=== PATIENT | male | born 1965 | race Caucasian/White ===

== ENCOUNTER 2017-03-13 16:09 | Emergency (ER) | payer MEDICARE, OTHER ==
[2017-03-13] MEDS ORDERED: DEXAMETHASONE 10 MG/ML VIAL PO STA (17:46)
[2017-03-13] MEDS ORDERED: CHERRY SYRUP 10 ML UDC PO ONE (17:47)
[2017-03-13] MEDS ORDERED: DEXAMETHASONE 10 MG/ML VIAL ONE (17:47)
--- NOTE | 2017-03-13 17:50 | ED Physician Documentation ---
PD HPI LOWER EXT INJURY - Stated complaint Stated Complaint: RT LEG PX - Chief complaint Chief Complaint: Ext Problem - History obtained from History obtained from: Patient - History of Present Illness PD HPI LOW EXT INJURY LOCATION: Right, Hip, Upper leg Type of injury: Other (mowing) Where injury occurred: A house / apartment Timing - onset: How many days ago (3) Timing - duration: Days (3) Timing - details: Gradual onset, Still present Improved by: Rest, Immobilization Worsened by: Moving, Palpating Associated symptoms: Tingling. No: Weakness, Numbness Contributing factors: Anticoagulated Similar symptoms before: No diagnosis Recently seen: Not recently seen - Additional information Additional information: 51 y/o male on coumadin for remote PE has developed pain in the right groin radiating down the right leg. He has no pain at rest but moving the leg in the right position (really the wrong position) causes pain in the anterior thigh from the groin and this pain radiates all the way down the leg past the knee to the medial calf. He has had this previously and it has lasted a few days and goes away and it has not been this painful previously. He did do the mowing at his parents earlier in the day before this pain started. He is comfortable while sitting. Review of Systems Constitutional: denies: Fever Eyes: denies: Decreased vision Ears: denies: Ear pain Nose: denies: Congestion Throat: denies: Sore throat Cardiac: denies: Chest pain / pressure Respiratory: denies: Cough GI: denies: Abdominal Pain, Nausea, Vomiting : denies: Dysuria, Frequency Skin: denies: Rash Musculoskeletal: reports: Extremity pain, Other (pain with certain movements of the right leg.). denies: Neck pain, Back pain, Extremity swelling, Joint swelling, Pain with weight bearing Neurologic: denies: Generalized weakness, Focal weakness, Numbness PD PAST MEDICAL HISTORY - Past Medical History Cardiovascular: Pulmonary embolism Respiratory: Emphysema Neuro: Headache/migraine Psych: Bipolar disorder Musculoskeletal: Chronic back pain - Past Surgical History Past Surgical History: No - Present Medications Home Medications: Ambulatory Orders Medication Instructions Recorded Confirmed QUEtiapine [SEROquel] 25 mg PO DAILY 04/23/14 03/13/17 Baclofen 10 mg PO BID PRN 06/20/14 03/13/17 Simvastatin 10 mg PO QPM 06/20/14 03/13/17 Warfarin [Coumadin] 6 mg PO DAILY 06/20/14 03/13/17 Sumatriptan [Imitrex] 100 mg PO BID PRN 01/15/15 03/13/17 Loratadine [Claritin] 1 tab PO DAILY 07/03/15 03/13/17 HYDROcod/ACETAM 5/325 [[place] 5/325] 1 - 2 ea PO Q6H PRN #15 tablet 03/13/17 Pregabalin [Lyrica] 0 mg PO ONCE 03/13/17 03/13/17 - Allergies Allergies/Adverse Reactions: Allergies Allergy/AdvReac Type Severity Reaction Status Date / Time No Known Drug Allergies Allergy Verified 03/13/17 16:20 - Social History Does the pt smoke?: Yes Smoking Status: Current every day smoker Does the pt drink ETOH?: No Does the pt have substance abuse?: No - Immunizations Immunizations are current?: Yes PD ED PE NORMAL - Vitals Vital signs reviewed: Yes (normal ) - General General: Alert and oriented X 3, No acute distress, Well developed/nourished - HEENT HEENT: Atraumatic, PERRL - Respiratory Respiratory: No respiratory distress - Derm Derm: Normal color, Warm and dry, No rash - Extremities Extremities: No deformity, No edema, No calf tenderness / cord, Other (There is some mild tenderness to the groin over the hip adductors. ) - Neuro Neuro: No motor deficit, No sensory deficit - Psych Psych: Normal mood, Normal affect Results - Vitals Vitals: Vital Signs - 24 hr 03/13/17 16:16 Temperature 36 C L Heart Rate 98 Respiratory 18 Rate Blood Pressure 103/69 O2 Saturation 97 Oxygen O2 Source Room air PD MEDICAL DECISION MAKING - ED course Complexity details: considered differential, d/w patient ED course: 51 y/o male with strain of the hip adductors presumed due to mowing and on coumadin. He has had this happen a number of times and today this is more painful than usual. He is treated with decadron and we will provide a small amount of pain medication for comfort. Departure - Departure Disposition: 01 Home, Self Care Clinical Impression: Strain of muscle of right groin region Condition: Stable Instructions: ED Strain Groin Follow-Up: Your, doctor [Other] Prescriptions: HYDROcod/ACETAM 5/325 [[place] 5/325] 1 - 2 ea PO Q6H PRN #15 tablet PRN Reason: Pain
[2017-03-13 18:20] VITALS: BP 115/66
== END 2017-03-13 18:15 | disposition home or self-care (01) ==
LOC: ED 16:09
DX: I26.99 Other pulmonary embolism without acute cor pulmonale (principal); Z79.01 Long term (current) use of anticoagulants; F17.200 Nicotine dependence, unspecified, uncomplicated; S76.911A Strain of unspecified muscles, fascia and tendons at thigh level, right thigh, initial encounter; X50.9XXA Other and unspecified overexertion or strenuous movements or postures, initial encounter; Y93.H9 Activity, other involving exterior property and land maintenance, building and construction; Y92.038 Other place in apartment as the place of occurrence of the external cause; Y92.007 Garden or yard of unspecified non-institutional (private) residence as the place of occurrence of the external cause
CPT/HCPCS: 99283; A9270

== ENCOUNTER 2018-01-28 02:44 | Outpatient (CLI) | payer OTHER | END 2018-01-28 02:45 | disposition critical access hospital (66) | LOC: EMS 02:44 | PROVIDERS: ATTEND Surgery | DX: R55 Syncope and collapse (principal); S09.90XA Unspecified injury of head, initial encounter; S91.111A Laceration without foreign body of right great toe without damage to nail, initial encounter; W18.39XA Other fall on same level, initial encounter; Y93.89 Activity, other specified; Y92.002 Bathroom of unspecified non-institutional (private) residence as the place of occurrence of the external cause | CPT/HCPCS: A0425; A0427 ==

== ENCOUNTER 2018-01-28 03:09 | Emergency (ER) | payer OTHER ==
--- NOTE | 2018-01-28 03:36 | ED Physician Documentation ---
PD HPI SYNCOPE - Stated complaint Stated Complaint: SYNCOPE - Chief complaint Chief Complaint: Trauma Hd/Nk - History obtained from History obtained from: Patient - History of Present Illness Witnessed: Unwitnessed Timing - onset: How many minutes ago (approximately 30-45 minutes [employer]) Duration: Seconds Preceding symptoms: Light headed, Generalized weakness Contributing factors: Just stood up Injury occurred: Fell, Other (right foot injury) Pain level now: 6 (right foot) Similar symptoms before: No diagnosis (patient says he has had similar episodes in the past and that previous testing did not reveal diagnosis/etiology) Recently seen: Not recently seen - Additional information Additional information: patient was at home tonight, had just finished having a bowel movement, and upon standing up from the toilet, had near syncopal episode. He says he did not lose consciousness; remembers entire event. He sustained a right foot injury although he does not know how he injured the foot. He found that he was unable to bear weight on the right foot and thus had to crawl to the phone to call 911. medics found patient to have a normal blood pressure on arrival to scene. he had a subsequent systolic blood pressure of 80, but this normalized on the next reading, and he arrives to the emergency department with a normal blood pressure. patient is on warfarin, did hit head tonight, although he denies headache. Review of Systems Constitutional: reports: Reviewed and negative Eyes: denies: Loss of vision, Decreased vision Cardiac: reports: Reviewed and negative Respiratory: reports: Reviewed and negative GI: reports: Reviewed and negative : denies: Dysuria, Frequency Skin: reports: Laceration (s) Musculoskeletal: reports: Extremity pain, Extremity swelling, Pain with weight bearing. denies: Neck pain, Back pain Neurologic: reports: Near syncope, Head injury. denies: Generalized weakness, Focal weakness, Numbness, Confused, Headache, LOC PD PAST MEDICAL HISTORY - Past Medical History Cardiovascular: Pulmonary embolism Respiratory: Emphysema Neuro: Headache/migraine Psych: Bipolar disorder Musculoskeletal: Chronic back pain - Past Surgical History Past Surgical History: No - Present Medications Home Medications: Ambulatory Orders Medication Instructions Recorded Confirmed QUEtiapine [SEROquel] 25 mg PO DAILY 04/23/14 01/28/18 Simvastatin 10 mg PO QPM 06/20/14 01/28/18 Warfarin [Coumadin] 5 mg PO DAILY 06/20/14 01/28/18 SUMAtriptan [Imitrex] 100 mg PO BID PRN 01/15/15 01/28/18 Amitriptyline HCl [Amitriptyline 1 tab PO DAILY 01/28/18 01/28/18 HCl] HYDROcod/ACETAM 5/325 [[place] 5/325] 1 - 2 ea PO Q6H PRN #14 tablet 01/28/18 Lurasidone HCl [Latuda] 20 mg PO DAILY 01/28/18 01/28/18 - Allergies Allergies/Adverse Reactions: Allergies Allergy/AdvReac Type Severity Reaction Status Date / Time No Known Drug Allergies Allergy Verified 01/28/18 03:17 - Social History Does the pt smoke?: Yes Smoking Status: Current every day smoker Does the pt drink ETOH?: No Does the pt have substance abuse?: No - Immunizations Immunizations are current?: No Immunizations: TDAP >10years/unknown PD ED PE NORMAL - Vitals Vital signs reviewed: Yes - General General: Alert and oriented X 3, No acute distress, Well developed/nourished - HEENT HEENT: PERRL, EOMI, Moist mucous membranes - Neck Neck: No bony TTP - Cardiac Cardiac: RRR, No murmur - Respiratory Respiratory: No respiratory distress, Clear bilaterally - Abdomen Abdomen: Soft, Non tender - Extremities Extremities: No edema - Neuro Neuro: Alert and oriented X 3, maintainer operator 2-12 intact, No motor deficit, No sensory deficit, Normal speech Eye Opening: Spontaneous Motor: Obeys Commands Verbal: Oriented GCS Score: 15 PD ED PE EXPANDED - HEENT HEENT: Other (small, raised abrasion right of midline forehead with mild tenderness) - Extremities Extremities: Other (tenderness, seelling, echymosis right midfoot and forefoot, dorsal surface) Feet visual: 1 - laceration (2 cm) Results - Vitals Vitals: Oxygen O2 Source Room air - EKG (time done) No standard instances Rate: Rate (enter#) (68) Rhythm: NSR [place]: Normal Intervals: Normal NH QRS: Normal Ischemia: Normal ST segments - Labs Labs: Laboratory Tests 01/28/18 01/28/18 01/28/18 03:25 03:25 03:25 WBC 10.9 H RBC 4.83 Hgb 14.1 Hct 44.3 MCV 91.8 MCH 29.3 MCHC 31.9 L RDW 14.5 Plt Count 207 MPV 8.9 Neut # 7.7 H Lymph # 2.0 [place] # 0.8 Eos # 0.3 Baso # 0.1 Absolute Nucleated RBC 0.02 Nucleated RBC % 0.1 PT 30.2 H INR 2.8 H APTT 26.8 Sodium 139 Potassium 3.5 Chloride 103 Carbon Dioxide 28 Anion Gap 8.0 BUN 9 Creatinine 1.0 Estimated GFR (MDRD) 78 L Glucose 167 H Calcium 8.6 Troponin I 01/28/18 03:25 WBC RBC Hgb Hct MCV MCH MCHC RDW Plt Count MPV Neut # Lymph # [place] # Eos # Baso # Absolute Nucleated RBC Nucleated RBC % PT INR APTT Sodium Potassium Chloride Carbon Dioxide Anion Gap BUN Creatinine Estimated GFR (MDRD) Glucose Calcium Troponin I < 0.04 - Rads (name of study) CT head Radiology: Prelim report reviewed, See rad report right foot xrays Radiology: Prelim report reviewed, See rad report Procedures - Laceration (location) Toe right Plantar Length in cm: 2 Wound type: Linear Neurovascular status: Sensory intact, Motor intact, Vascular intact Tendon involvement: Tendon intact Anesthesia: Lidocaine 1% Wound Preparation: Chlorhexadine, Irrigated copiously NS, To the base. No: FB identified Skin layer closure: Running (2 running sutures placed), Size #-0 - enter number (4-0) Other: Patient tolerated well, No complications, Neurovascular intact, Dressing applied, Tetanus booster given Complexity: Simple PD MEDICAL DECISION MAKING - ED course Complexity details: reviewed results, re-evaluated patient, considered differential, d/w patient Departure - Departure Disposition: 01 Home, Self Care Clinical Impression: Near syncope Laceration of toe of right foot Qualifiers: Encounter type: initial encounter Toe: great toe Damage to nail status: without damage Foreign body presence: without foreign body Qualified Code(s): S91.111A - Laceration without foreign body of right great toe without damage to nail, initial encounter Contusion, foot Qualifiers: Encounter type: initial encounter Laterality: right Qualified Code(s): S90.31XA - Contusion of right foot, initial encounter Condition: Good Instructions: ED Contusion Foot, ED Crutch Walking, ED Laceration Foot, ED Near Syncope Unkn Follow-Up: Neelam Hyde MD [Provider Admit Priv/Credential] - Prescriptions: HYDROcod/ACETAM 5/325 [[place] 5/325] 1 - 2 ea PO Q6H PRN #14 tablet PRN Reason: Pain Comments: Follow up with your doctor in 7-8 days for removal of the stitches in your foot Discharge Date/Time: 01/28/18 05:34
[2018-01-28 03:51] LABS: INR 2.8 (0.8-1.2); PT - PROTHROMBIN TIME 30.2 secs (9.9-12.6)
[2018-01-28 03:52] LABS: BASOPHILS # (AUTO) 0.1 10^3/uL (0.0-0.1); BASOPHILS % (AUTO) 0.5 %; EOSINOPHILS # (AUTO) 0.3 10^3/uL (0.0-0.7); EOSINOPHILS % (AUTO) 2.7 %; HGB - HEMOGLOBIN 14.1 g/dL (14.0-18.0); LYMPHOCYTES % (AUTO) 18.8 %; MEAN CORPUSCULAR HEMOGLOBIN 29.3 pg (27.0-31.0); MEAN CORPUSCULAR HGB CONC 31.9 g/dL (32.0-36.0); MEAN CORPUSCULAR VOLUME 91.8 fL (80.0-94.0); MEAN PLATELET VOLUME 8.9 fL (7.4-11.4); MONOCYTES # (AUTO) 0.8 10^3/uL (0.0-1.0); MONOCYTES % (AUTO) 7.6 %; NEUTROPHILS # (AUTO) 7.7 10^3/uL (1.5-6.6); NEUTROPHILS % (AUTO) 70.4 %; PLT - PLATELET COUNT 207 10^3/uL (130-450); RED BLOOD COUNT 4.83 10^6/uL (4.70-6.10); RED CELL DISTRIBUTION WIDTH 14.5 % (12.0-15.0); WHITE BLOOD COUNT 10.9 x10^3/uL (4.8-10.8)
[2018-01-28 03:53] LABS: CALCIUM 8.6 mg/dL (8.5-10.3)
[2018-01-28] MEDS: TETANUS/DIPHTHERIA/PERTUSSIS 0.5 ML SYRINGE IM ONE (04:03)
--- NOTE | 2018-01-28 04:23 | CT Report ---
EXAM: CT HEAD EXAM DATE: 01/28/2018 04:11 AM. CLINICAL HISTORY: Syncope, head injury. COMPARISON: CT head 01/15/2015.. TECHNIQUE: Multiaxial CT images were obtained from the foramen magnum to the vertex. Reformats: Coron al. IV contrast: None. In accordance with CT protocol optimization, one or more of the following dose reduction techniques w ere utilized for this exam: automated exposure control, adjustment of mA and/or KV based on patient s ize, or use of iterative reconstructive technique. FINDINGS: Parenchyma: No intraparenchymal hemorrhage. No evidence of mass, midline shift, or CT findings of inf arction. Car-white differentiation is distinct. Extraaxial Spaces: Normal for age. No subdural or epidural collections identified. Ventricles: Normal in size and position. Sinuses and Orbits: Imaged paranasal sinuses, orbits, and mastoids show no significant abnormality. Bones: No evidence of fracture or calvarial defect. Other: None. IMPRESSION: Negative CT head without contrast. No change compared to 01/15/2015. [facility] Referring Provider Line: [phone] SITE ID: [id number]
--- NOTE | 2018-01-28 04:23 | CT Preliminary Report ---
Exam: CT HEAD W/O IMPRESSION: Negative CT head without contrast. No change compared to 01/15/2015. [facility] SITE ID: [id number]
--- NOTE | 2018-01-28 04:38 | XRAY Preliminary Report ---
Exam: XR FOOT 3 VIEW RT IMPRESSION: Dorsal soft tissue joint without evidence of an acute displaced fracture. SITE ID: [id number]
--- NOTE | 2018-01-28 04:39 | XRAY Report ---
EXAM: RIGHT FOOT RADIOGRAPHY EXAM DATE: 01/28/2018 04:12 AM. CLINICAL HISTORY: Injury, swelling, tenderness. COMPARISON: None. TECHNIQUE: 3 views. FINDINGS: Bones: No acute displaced fractures or suspicious bony lesion. Joints: No dislocation. Soft Tissues: There is moderate dorsal soft tissue swelling. IMPRESSION: Dorsal soft tissue joint without evidence of an acute displaced fracture. Referring Provider Line: [phone] SITE ID: [id number]
[2018-01-28] MEDS: LIDOCAINE 1% 2 ML VIAL SUBQ STA (04:41)
[2018-01-28] MEDS ORDERED: BACITRACIN OINT TOP ONE (05:24)
[2018-01-28] MEDS: BACITRACIN OINT TOP STA (05:26)
[2018-01-28] MEDS: HYDROcod/ACETAM 5/325 MG TABLET PO STA (05:26)
[2018-01-28] MEDS: HYDROcod/ACET 5/325 Prepack 4 PO STA (05:26)
[2018-01-28 05:28] VITALS: BP 99/68
== END 2018-01-28 05:34 | disposition home or self-care (01) ==
LOC: EDUNIT# → ED 03:09
DX: R55 Syncope and collapse (principal); S91.111A Laceration without foreign body of right great toe without damage to nail, initial encounter; S90.31XA Contusion of right foot, initial encounter; W18.30XA Fall on same level, unspecified, initial encounter; F17.200 Nicotine dependence, unspecified, uncomplicated; Z86.711 Personal history of pulmonary embolism; Z79.01 Long term (current) use of anticoagulants
CPT/HCPCS: 12001; 36415; 70450; 73630; 80048; 84484; 85025; 85610; 85730; 90471; 90715; 93005; 96372; 99283; 99285; A9270

== ENCOUNTER 2021-08-24 23:10 | Outpatient (CLI) | payer MEDICARE | END 2021-08-24 23:11 | disposition short-term general hospital (02) | LOC: EMS 23:10 | DX: R10.31 Right lower quadrant pain (principal) | CPT/HCPCS: A0425; A0429 ==

== ENCOUNTER 2024-05-23 00:39 | Outpatient (CLI) | payer OTHER | END 2024-05-23 23:59 | disposition short-term general hospital (02) | LOC: EMS 00:39 | DX: R10.84 Generalized abdominal pain (principal); R19.37 Generalized abdominal rigidity; R14.0 Abdominal distension (gaseous) | CPT/HCPCS: A0425; A0429 ==